=== PATIENT | female | born 1965 | race Caucasian/White ===

== ENCOUNTER 2024-04-30 15:47 | Observation (INO) | payer OTHER ==
[~2024-04-30] VITALS: Ht 160 cm; Wt 123.2 kg
[2024-04-30] VITALS (16 sets, daily range): BP systolic 98–119; BP diastolic 48–64
[2024-04-30] MEDS ORDERED: ASPIRIN 81 MG/TAB PO ONE (16:10)
[2024-04-30 16:44] LABS: ALBUMIN 3.6 g/dL (3.2-5.0); ALKALINE PHOSPHATASE 99 u/l (38-126); ANION GAP 10 (6-22 (CALC)); BILIRUBIN, TOTAL 0.9 mg/dL (0.02-1.3); BUN 15 mg/dL (7-17); BUN/CREATININE RATIO 13 (12-20 (CALC)); CARBON DIOXIDE 22 mmol/l (22-30); CHLORIDE 111 mmol/l (95-108); CREATININE 1.2 mg/dL (0.5-1.0); ESTIMATED GFR 53 ML/MIN (>=90 (CALC)); SGOT/AST 26 u/l (14-36); SODIUM 140 mmol/l (137-146); TOTAL PROTEIN 7.2 g/dL (6.3-8.2)
[2024-04-30 16:45] LABS: BASO% 0.9 % (0-3); EOS% 3.6 % (0-8); HEMATOCRIT 38.9 % (37.0-47.0); HEMOGLOBIN 12.6 g/dl (12.0-16.0); IMMATURE GRANULOCYTES 2.1 % (0.0-5.0); MEAN CELL VOLUME 78.7 fL CALC (80.0-100.0); MEAN CORPUSCULAR HGB 25.5 pG CALC (26.0-32.0); MEAN CORPUSCULAR HGB CONC 32.4 g/dL CAL (32.0-36.0); MONO% 4.6 % (2-13); NEUT# 9.46 thou/uL (2.00-7.15); NEUT% 74.8 % (42-76); RED BLOOD COUNT 4.94 mill/uL (4.20-5.60); RED CELL DISTRI WIDTH 14.9 % (11.5-15.5)
[2024-04-30] MEDS ORDERED: LAMICTAL200 M1 PO (18:48)
[2024-04-30] MEDS ORDERED: ABILIFY15 MG PO (18:48)
[2024-04-30] MEDS ORDERED: GABAPENTIN300 M2 PO (18:50)
[2024-04-30] MEDS ORDERED: DEPAKOTE250 MG PO (18:50)
[2024-04-30] MEDS ORDERED: FLUOXETINE HCL40 MG PO (18:51)
[2024-04-30] MEDS ORDERED: ATORVASTATIN CA80 MG PO (18:51)
[2024-04-30] MEDS ORDERED: CLONAZEPAM1 M1 PO (18:52)
[2024-04-30] MEDS ORDERED: DOPTELET20 MG PO (18:52)
[2024-04-30] MEDS ORDERED: DOXYCYCLINE HYCLATE 100 MG in SODIUM CHLORIDE 0.9% 100 ML IV ONE (19:40)
[2024-04-30] MEDS ORDERED: MAGNESIUM HYDROXIDE 30 ML UDC PO PRN (20:10)
[2024-04-30] MEDS ORDERED: MORPHINE SULFATE 4 MG/ML VIAL IV PRN (20:10)
[2024-04-30] MEDS ORDERED: clonazePAM 0.5 MG/TAB PO PRN (20:10)
[2024-04-30] MEDS ORDERED: ACETAMINOPHEN 325 MG/TAB PO PRN (20:10)
[2024-04-30] MEDS ORDERED: NITROGLYCERIN 0.4 MG/TAB SL PRN (20:10)
[2024-04-30] MEDS ORDERED: SODIUM CHLORIDE 0.9% 1,000 ML IV PRN (20:10)
[2024-04-30] MEDS ORDERED: INSULIN LISPRO 100 UNITS/ML ML SC SCH (21:00)
[2024-04-30] MEDS ORDERED: GABAPENTIN 300 MG/CAP PO SCH (21:00)
[2024-04-30] MEDS ORDERED: METOPROLOL TARTRATE 25 MG/TAB PO SCH (21:00)
[2024-04-30] MEDS ORDERED: ATORVASTATIN CALCIUM 40 MG/TAB PO SCH (21:00)
[2024-04-30] MEDS ORDERED: ENOXAPARIN SODIUM 40 MG/0.4 ML SYR SC SCH (21:00)
[2024-05-01] VITALS (10 sets, daily range): BP systolic 96–119; BP diastolic 46–61
[2024-05-01] MEDS ORDERED: LEVOTHYROXINE SODIUM 75 MCG/TAB PO SCH (06:00)
[2024-05-01 06:22] LABS: BASO% 0.3 % (0-3); EOS% 3.6 % (0-8); HEMATOCRIT 38.9 % (37.0-47.0); IMMATURE GRANULOCYTES 3.3 % (0.0-5.0); LYMPH% 19.2 % (15-41); MEAN CELL VOLUME 80.7 fL CALC (80.0-100.0); MEAN CORPUSCULAR HGB 24.9 pG CALC (26.0-32.0); MEAN CORPUSCULAR HGB CONC 30.8 g/dL CAL (32.0-36.0); MONO% 6.8 % (2-13); NEUT# 7.61 thou/uL (2.00-7.15); NEUT% 66.8 % (42-76); RED BLOOD COUNT 4.82 mill/uL (4.20-5.60)
[2024-05-01 06:42] LABS: ALBUMIN 3.2 g/dL (3.2-5.0); BILIRUBIN, TOTAL 0.7 mg/dL (0.02-1.3); CREATININE 1.1 mg/dL (0.5-1.0); MAGNESIUM 1.8 mg/dL (1.6-2.3); POTASSIUM 4.3 mmol/l (3.5-5.1); TOTAL PROTEIN 6.3 g/dL (6.3-8.2)
[2024-05-01] MEDS ORDERED: ARIPiprazole 10 MG/TAB PO SCH (09:00)
[2024-05-01] MEDS ORDERED: FLUoxetine HCL 10 MG/CAP PO SCH (09:00)
[2024-05-01] MEDS ORDERED: ASPIRIN 81 MG/TAB PO SCH (09:00)
[2024-05-01] MEDS ORDERED: lamoTRIgine 100 MG/TAB PO SCH (09:00)
[2024-05-01] MEDS ORDERED: FUROSEMIDE 40 MG/4 ML SDV IV SCH (10:00)
[2024-05-02] VITALS (7 sets, daily range): BP systolic 102–112; BP diastolic 40–60
[2024-05-02 04:50] LABS: BASO% 0.2 % (0-3); EOS% 3.1 % (0-8); IMMATURE GRANULOCYTES 2.8 % (0.0-5.0); LYMPH% 12.5 % (15-41); MEAN CELL VOLUME 78.8 fL CALC (80.0-100.0); MEAN CORPUSCULAR HGB CONC 31.7 g/dL CAL (32.0-36.0); MONO% 6.5 % (2-13); NEUT# 12.24 thou/uL (2.00-7.15); NEUT% 74.9 % (42-76); RED BLOOD COUNT 5.2 mill/uL (4.20-5.60); RED CELL DISTRI WIDTH 14.7 % (11.5-15.5)
[2024-05-02 05:09] LABS: ALBUMIN 3.6 g/dL (3.2-5.0); CREATININE 1.4 mg/dL (0.5-1.0); MAGNESIUM 1.6 mg/dL (1.6-2.3); POTASSIUM 3.9 mmol/l (3.5-5.1); TOTAL PROTEIN 6.9 g/dL (6.3-8.2)
[2024-05-02 05:15] LABS: BILIRUBIN, TOTAL 1.3 mg/dL (0.02-1.3)
[2024-05-02] MEDS ORDERED: VANCOMYCIN HCL 125 MG/CAP PO SCH (13:00)
[2024-05-02] MEDS ORDERED: oxyCODONE HCL 5 MG/TAB PO PRN (20:35)
[2024-05-03] VITALS (8 sets, daily range): BP systolic 95–124; BP diastolic 42–68
[2024-05-03 05:33] LABS: BASO% 0.3 % (0-3); EOS% 3.7 % (0-8); HEMATOCRIT 41.8 % (37.0-47.0); HEMOGLOBIN 13.5 g/dl (12.0-16.0); IMMATURE GRANULOCYTES 2.1 % (0.0-5.0); MEAN CELL VOLUME 78.9 fL CALC (80.0-100.0); MEAN CORPUSCULAR HGB 25.5 pG CALC (26.0-32.0); MEAN CORPUSCULAR HGB CONC 32.3 g/dL CAL (32.0-36.0); MONO% 7.1 % (2-13); NEUT# 9.77 thou/uL (2.00-7.15); NEUT% 69.8 % (42-76); RED BLOOD COUNT 5.3 mill/uL (4.20-5.60); RED CELL DISTRI WIDTH 14.7 % (11.5-15.5)
[2024-05-03 05:47] LABS: BILIRUBIN, TOTAL 1.2 mg/dL (0.02-1.3); CREATININE 1.5 mg/dL (0.5-1.0); MAGNESIUM 1.8 mg/dL (1.6-2.3); POTASSIUM 3.8 mmol/l (3.5-5.1); TOTAL PROTEIN 7.1 g/dL (6.3-8.2)
[2024-05-03 14:44] LABS: C. DIFFICILE TOXIN A&B NEGATIVE (NEGATIVE)
[2024-05-04] VITALS (8 sets, daily range): BP systolic 103–143; BP diastolic 44–60
[2024-05-04 05:16] LABS: BASO% 0.2 % (0-3); EOS% 3.7 % (0-8); HEMATOCRIT 40.5 % (37.0-47.0); HEMOGLOBIN 13.1 g/dl (12.0-16.0); IMMATURE GRANULOCYTES 1.6 % (0.0-5.0); MEAN CELL VOLUME 78.8 fL CALC (80.0-100.0); MEAN CORPUSCULAR HGB 25.5 pG CALC (26.0-32.0); MEAN CORPUSCULAR HGB CONC 32.3 g/dL CAL (32.0-36.0); MONO% 7.1 % (2-13); NEUT# 10.38 thou/uL (2.00-7.15); NEUT% 71.4 % (42-76); RED BLOOD COUNT 5.14 mill/uL (4.20-5.60); RED CELL DISTRI WIDTH 14.5 % (11.5-15.5)
[2024-05-04 05:27] LABS: ALBUMIN 3.8 g/dL (3.2-5.0); BILIRUBIN, TOTAL 1.5 mg/dL (0.02-1.3); CREATININE 1.5 mg/dL (0.5-1.0); MAGNESIUM 1.8 mg/dL (1.6-2.3); POTASSIUM 3.1 mmol/l (3.5-5.1); TOTAL PROTEIN 6.7 g/dL (6.3-8.2)
[2024-05-04] MEDS ORDERED: POTASSIUM CHLORIDE 20 MEQ/TAB PO SCH (08:00)
[2024-05-05 04:26] VITALS: BP 118/62
[2024-05-05 04:48] LABS: BASO% 0.4 % (0-3); EOS% 3.4 % (0-8); HEMOGLOBIN 13.3 g/dl (12.0-16.0); IMMATURE GRANULOCYTES 1.5 % (0.0-5.0); LYMPH% 17.6 % (15-41); MEAN CELL VOLUME 79.3 fL CALC (80.0-100.0); MEAN CORPUSCULAR HGB 25.7 pG CALC (26.0-32.0); MEAN CORPUSCULAR HGB CONC 32.4 g/dL CAL (32.0-36.0); MONO% 7.1 % (2-13); NEUT# 8.24 thou/uL (2.00-7.15); RED BLOOD COUNT 5.17 mill/uL (4.20-5.60); RED CELL DISTRI WIDTH 14.4 % (11.5-15.5)
[2024-05-05 04:56] VITALS: BP 118/62
[2024-05-05 05:01] LABS: ALBUMIN 3.9 g/dL (3.2-5.0); BILIRUBIN, TOTAL 1.3 mg/dL (0.02-1.3); CREATININE 1.5 mg/dL (0.5-1.0); MAGNESIUM 1.9 mg/dL (1.6-2.3); POTASSIUM 3.3 mmol/l (3.5-5.1)
[2024-05-05 06:40] VITALS: BP 124/67
[2024-05-05] MEDS ORDERED: BACTRIM DS1 TAB PO (07:12)
[2024-05-05 09:33] VITALS: BP 112/68
[2024-05-05 11:03] VITALS: BP 110/67
[2024-05-05] MEDS ORDERED: OXYCODONE5 M1 PO (12:11)
== END 2024-05-05 13:30 | disposition home or self-care (01) | DRG 313 ==
LOC: ED 15:47 → ED-I 19:30 → ED 19:47 → MS2 19:48
PROVIDERS: Family Medicine; Nurse Practitioner Family; ADMIT Student in an Organized Health Care Education/Training Program; ATTEND Student in an Organized Health Care Education/Training Program
DX: R07.89 Other chest pain (principal); L03.115 Cellulitis of right lower limb; I13.0 Hypertensive heart and chronic kidney disease with heart failure and stage 1 through stage 4 chronic kidney disease, or unspecified chronic kidney disease; I50.22 Chronic systolic (congestive) heart failure; D69.3 Immune thrombocytopenic purpura; E11.22 Type 2 diabetes mellitus with diabetic chronic kidney disease; N18.32 Chronic kidney disease, stage 3b; F31.9 Bipolar disorder, unspecified; E78.5 Hyperlipidemia, unspecified; E66.9 Obesity, unspecified; Z91.199 Patient's noncompliance with other medical treatment and regimen due to unspecified reason
CPT/HCPCS: J0690; J1650

== ENCOUNTER 2024-07-01 20:45 | Emergency (ER) | payer OTHER, MEDICAID ==
[2024-07-01] VITALS (8 sets, daily range): BP systolic 94–136; BP diastolic 53–71
[~2024-07-01] VITALS: Ht 160 cm; Wt 108.0 kg
[~2024-07-01 20:45] MED LIST: ABILIFY15 MG PO; ATORVASTATIN CA80 MG PO; BACTRIM DS1 TAB PO; CLONAZEPAM1 M1 PO; DEPAKOTE250 MG PO; DOPTELET20 MG PO; FLUOXETINE HCL40 MG PO; GABAPENTIN300 M2 PO; LAMICTAL200 M1 PO; OXYCODONE5 M1 PO
[2024-07-01] MEDS ORDERED: ACETAMINOPHEN 500 MG TAB PO ONE (21:10)
[2024-07-01] MEDS ORDERED: KETOROLAC TROMETHAMINE 30 MG/ML SDV IV ONE (21:10)
[2024-07-01] MEDS ORDERED: MORPHINE SULFATE 4 MG/ML VIAL IV ONE (21:10)
[2024-07-01] MEDS ORDERED: METOPROLOL TARTRATE 25 MG/TAB PO ONE (21:15)
[2024-07-01 21:40] LABS: BASO% 0.3 % (0-3); EOS% 1.9 % (0-8); HEMATOCRIT 43.1 % (37.0-47.0); HEMOGLOBIN 13.6 g/dl (12.0-16.0); IMMATURE GRANULOCYTES 1.9 % (0.0-5.0); LYMPH% 13.3 % (15-41); MEAN CELL VOLUME 80.6 fL CALC (80.0-100.0); MEAN CORPUSCULAR HGB 25.4 pG CALC (26.0-32.0); MEAN CORPUSCULAR HGB CONC 31.6 g/dL CAL (32.0-36.0); MONO% 6.3 % (2-13); NEUT# 13.76 thou/uL (2.00-7.15); NEUT% 76.3 % (42-76); RED BLOOD COUNT 5.35 mill/uL (4.20-5.60); RED CELL DISTRI WIDTH 14.7 % (11.5-15.5)
[2024-07-01 21:53] LABS: ALBUMIN 4.1 g/dL (3.2-5.0); ALKALINE PHOSPHATASE 91 u/l (38-126); BUN 24 mg/dL (7-17); BUN/CREATININE RATIO 20 (12-20 (CALC)); CARBON DIOXIDE 25 mmol/l (22-30); CHLORIDE 107 mmol/l (95-108); CREATININE 1.2 mg/dL (0.5-1.0); ESTIMATED GFR 53 ML/MIN (>=90 (CALC)); SGOT/AST 41 u/l (14-36); SODIUM 138 mmol/l (137-146); TOTAL PROTEIN 7.6 g/dL (6.3-8.2)
[2024-07-01 21:56] LABS: ANION GAP 11 (6-22 (CALC)); POTASSIUM 4.7 mmol/l (3.5-5.1)
[2024-07-01 22:00] LABS: ACT PARTIAL THROMBO TIME 25.1 SECONDS (20.0-32.5); INTERNATIONAL NORMALIZED RATIO 1.1 RATIO (0.7-1.3); PROTHROMBIN TIME 10.5 SECONDS (9.0-12.5)
[2024-07-01] MEDS ORDERED: ONDANSETRON HCl 4 MG/2 ML SDV IV ONE (22:55)
[2024-07-01] MEDS ORDERED: NITROGLYCERIN 2% OINT UD 1 GM/PAK TD ONE (23:15)
[2024-07-01 23:20] LABS: URINE BILIRUBIN - DIPSTICK Negative (NEGATIVE); URINE BLOOD DIPSTICK Negative (NEGATIVE); URINE GLUCOSE - DIPSTICK 500 mg/dL (NEGATIVE); URINE KETONE Negative (NEGATIVE); URINE LEUK ESTERASE Negative (NEGATIVE); URINE NITRITE - DIPSTICK Negative (Negative); URINE PH 5.5 (4.5-8.0); URINE PROTEIN - DIPSTICK Trace mg/dL (NEG-TRACE)
[2024-07-01 23:23] LABS: URINE COLOR Yellow
[2024-07-02] VITALS (12 sets, daily range): BP systolic 87–106; BP diastolic 50–60
[2024-07-02] MEDS ORDERED: BACTRIM DS1 TAB PO (01:13)
[2024-07-02] MEDS ORDERED: SULFAMETHOXAZOLE W/TRIMETHOPRI 1 COMBO TAB PO ONE (01:15)
== END 2024-07-02 02:20 | disposition home or self-care (01) | DRG 313 ==
LOC: ED 20:45
PROVIDERS: Family Medicine
DX: R07.9 Chest pain, unspecified (principal); L03.313 Cellulitis of chest wall; I13.0 Hypertensive heart and chronic kidney disease with heart failure and stage 1 through stage 4 chronic kidney disease, or unspecified chronic kidney disease; D69.3 Immune thrombocytopenic purpura; B37.2 Candidiasis of skin and nail; E11.22 Type 2 diabetes mellitus with diabetic chronic kidney disease; N18.9 Chronic kidney disease, unspecified; I50.9 Heart failure, unspecified; F31.9 Bipolar disorder, unspecified; E78.5 Hyperlipidemia, unspecified